=== PATIENT | male | born 2000 | race Hispanic/Latino ===

== ENCOUNTER 2019-03-13 14:53 | Emergency (ER) | payer SELFPAY ==
[2019-03-13] MEDS ORDERED: Adacel (T-DAP) 0.5 ML SYRINGE ONE (15:04)
[2019-03-13] MEDS ORDERED: Triple Antibiotic Oint 1 GM Packet ONE (15:15)
== END 2019-03-13 15:19 | disposition home or self-care (01) ==
LOC: BURERS 14:53
DX: S01.84XA Puncture wound with foreign body of other part of head, initial encounter (principal); F17.210 Nicotine dependence, cigarettes, uncomplicated; W26.8XXA Contact with other sharp object(s), not elsewhere classified, initial encounter
CPT/HCPCS: 90471; 90715

== ENCOUNTER 2020-04-20 02:14 | Emergency (ER) | payer SELFPAY | END 2020-04-20 02:41 | disposition home or self-care (01) | LOC: BURERS 02:14 | DX: M54.5 Low back pain (principal); F41.9 Anxiety disorder, unspecified; F31.9 Bipolar disorder, unspecified; F17.210 Nicotine dependence, cigarettes, uncomplicated | CPT/HCPCS: 99281 ==